=== PATIENT | male | born 1945 | race Caucasian/White ===

== ENCOUNTER 2024-04-13 11:02 | Inpatient (IN) ==
[2024-04-13 11:39] LABS: ABS Lymphocytes 0.9 10^3/uL (1.0-4.8); ABS Monocytes 0.5 10^3/uL (0.0-1.1); ABS Nucleated RBC 0.01 10^3/ul; Eosinophil % 0.1 %; Hemoglobin 13.3 g/dL (13.2-16.3); Lymphocyte % 11.9 %; Mean Corpuscular Hemoglobin 29.9 pg (27-33); Mean Corpuscular Hgb Conc 33.2 g/dL (31-36); Mean Platelet Volume 8.1 fL (7.5-11.2); Nucleated Red Blood Cells % 0.1 %/100WBC (0.0-0.8); Platelet Count 141 10^3/uL (150-450); Red Blood Count 4.45 10^6/uL (4.06-5.63); Red Cell Distribution Width 14.8 % (12-17); White Blood Count 7.4 10^3/uL (3.6-10.2)
[2024-04-13 11:44] LABS: INR 1.09 (0.85-1.14)
[2024-04-13] MEDS: Cefepime 2 GM in Dextrose 2 GM/50 ML BAG IV ONE (11:47)
[2024-04-13 12:31] LABS: Albumin/Globulin Ratio 1.5 (1-3); C Reactive Protein 44.79 mg/L (<8.01); Calcium 8.4 mg/dL (8.6-10.3); Creatinine, Serum 2.95 mg/dL (0.67-1.17); Globulin 2.7 g/dL (2-4); Magnesium 1.6 mg/dL (1.9-2.7); Potassium 3.2 mmol/L (3.5-5.0); Total Bilirubin 0.7 mg/dL (0.2-1.0); Total Protein 6.7 g/dL (6.4-8.9); eGFR CKD-EPI 21.2 (>60)
[2024-04-13 13:18] LABS: Urine Appearance Turbid; Urine Bilirubin Negative (Negative); Urine Blood 1+ (Negative); Urine Color Light-Yellow; Urine Glucose Negative (Negative); Urine Ketones Negative (Negative); Urine Nitrite Negative (Negative); Urine Protein 2+ (>=100 mg/dL) (Negative); Urine Specific Gravity 1.013 (1.002-1.030); Urine Urobilinogen Negative (Negative); Urine pH 7.5 (5.0-8.0)
[2024-04-13] MEDS: Magnesium Sulfate 2 gm BAG 2 GM/50 ML BAG IVPB ONE (13:25)
[2024-04-13 13:29] LABS: Urine Bacteria 2+ /HPF (Absent); Urine Red Blood Cell 3+(>10/hpf) /HPF (0-Trace); Urine White Blood Cell 3+(>20/hpf) /HPF (0-Trace)
[2024-04-13 13:42] LABS: High Sensitivity Troponin 1 Hr 38 pg/mL (<20)
[2024-04-13] MEDS: Lactated Ringers 1000 ml BAG 1,000 ML IV ONE (14:36)
[2024-04-13] MEDS: Polyethylene Glycol 3350 17 GM PACKET PO SCH (20:52)
[2024-04-13] MEDS: Senna TAB 8.6 mg TAB PO SCH (20:53)
[2024-04-13] MEDS: ABIRATERONE 250 MG PO SCH (21:00)
[2024-04-13] MEDS: Lactated Ringers 1000 ml BAG 1,000 ML IV SCH (21:31)
[2024-04-13] MEDS: Insulin GLARGINE 100 un/ml 10 ml VIAL SUBCUT SCH (21:41)
[2024-04-13] MEDS: Enoxaparin 30 MG/0.3 ML SYR SUBCUT SCH (23:24)
[2024-04-13] MEDS: NS 0.9% 1000 ml BAG 1,000 ML IV SCH (23:56)
[2024-04-13] MEDS: KCL 20 MEQ/100 ML IVPREMIX 20 MEQ/100 ML BAG IV ONE (23:57)
[2024-04-14 06:09] LABS: Hematocrit 40.9 % (38-53); Mean Corpuscular Hemoglobin 30.8 pg (27-33); Mean Corpuscular Hgb Conc 34.3 g/dL (31-36); Mean Corpuscular Volume 89.7 fL (80-97); Red Blood Count 4.56 10^6/uL (4.06-5.63); Red Cell Distribution Width 14.9 % (12-17); White Blood Count 8.1 10^3/uL (3.6-10.2)
[2024-04-14 06:41] LABS: ABS Lymphocytes 1.1 10^3/uL (1.0-4.8); ABS Monocytes 0.3 10^3/uL (0.0-1.1); ABS Neutrophils 6.7 10^3/uL (1.5-7.6); ABS Nucleated RBC 0.01 10^3/ul; Mean Platelet Volume 8.8 fL (7.5-11.2); Nucleated Red Blood Cells % 0.2 %/100WBC (0.0-0.8); Platelet Count 93 10^3/uL (150-450)
[2024-04-14 07:27] LABS: Calcium 8.7 mg/dL (8.6-10.3); Creatinine, Serum 2.79 mg/dL (0.67-1.17); eGFR CKD-EPI 22.6 (>60)
[2024-04-14 07:41] LABS: Potassium 3.4 mmol/L (3.5-5.0)
[2024-04-14] MEDS: cefTRIAXone 1 gm/50 mL D5W 1 GM/50 ML BAG IV SCH (10:25)
[2024-04-14] MEDS: CMC:Venlafaxine 25 mg TAB (NF) PO SCH (10:36)
[2024-04-15 06:53] LABS: Calcium 8.2 mg/dL (8.6-10.3); Creatinine, Serum 2.83 mg/dL (0.67-1.17); Potassium 3.2 mmol/L (3.5-5.0); eGFR CKD-EPI 22.2 (>60)
[2024-04-15 07:29] LABS: Hematocrit 35.2 % (38-53); Hemoglobin 12.2 g/dL (13.2-16.3); Mean Corpuscular Hemoglobin 30.5 pg (27-33); Mean Corpuscular Hgb Conc 34.8 g/dL (31-36); Mean Corpuscular Volume 87.6 fL (80-97); Mean Platelet Volume 9.7 fL (7.5-11.2); Platelet Count 55 10^3/uL (150-450); Red Blood Count 4.02 10^6/uL (4.06-5.63); Red Cell Distribution Width 14.8 % (12-17); White Blood Count 4.3 10^3/uL (3.6-10.2)
[2024-04-15] MEDS: Lactated Ringers 1000 ml BAG 1,000 ML IV ONE (09:44)
[2024-04-15] MEDS: Cefepime 1 GM in Dextrose 1 GM/50 ML BAG IV SCH (10:37)
[2024-04-15] MEDS: Potassium Chloride LIQUID 20 MEQ/15 ML LIQUID PO ONE (10:54)
[2024-04-15] MEDS: Lactated Ringers 1000 ml BAG 1,000 ML IV SCH (11:01)
[2024-04-15] MEDS ORDERED: Dextrose 50% Syringe 50 ml 25 GM/50 ML SYRINGE IV PUSH PRN (12:38)
[2024-04-15] MEDS ORDERED: Insulin GLARGINE 100 un/ml 10 ml VIAL SUBCUT SCH (21:00)
[2024-04-16 08:03] LABS: Creatinine, Serum 2.95 mg/dL (0.67-1.17); Potassium 3.1 mmol/L (3.5-5.0); eGFR CKD-EPI 21.2 (>60)
[2024-04-16 08:47] LABS: Hematocrit 30.7 % (38-53); Hemoglobin 10.8 g/dL (13.2-16.3); Mean Corpuscular Hemoglobin 30.8 pg (27-33); Mean Corpuscular Hgb Conc 35.3 g/dL (31-36); Mean Corpuscular Volume 87.3 fL (80-97); Mean Platelet Volume 10.9 fL (7.5-11.2); Platelet Count 42 10^3/uL (150-450); Red Blood Count 3.51 10^6/uL (4.06-5.63); Red Cell Distribution Width 14.6 % (12-17); White Blood Count 3.7 10^3/uL (3.6-10.2)
[2024-04-16] MEDS: Calcium Carb (TUMS) 500 mg CHEW TAB PO ONE (10:42)
[2024-04-16] MEDS: cefTRIAXone 1 gm/50 mL D5W 1 GM/50 ML BAG IV SCH (11:58)
[2024-04-16] MEDS: Potassium Chloride LIQUID 20 MEQ/15 ML LIQUID PO ONE (12:07)
[2024-04-16 21:21] LABS: Anaplasma phagocytophilum Positive (Negative); B. miyamotoi PCR, B Negative (Negative); Babesia divergens/MO-1 Negative (Negative); Babesia ducani Negative (Negative); Ehrlichia chaffeensis Negative (Negative); Ehrlichia ewingii/canis Negative (Negative); Ehrlichia muris eauclairensis Negative (Negative)
[2024-04-17 06:31] LABS: INR 0.96 (0.85-1.14)
[2024-04-17 06:43] LABS: Hematocrit 30.9 % (38-53); Hemoglobin 10.9 g/dL (13.2-16.3); Mean Corpuscular Hemoglobin 30.7 pg (27-33); Mean Corpuscular Hgb Conc 35.4 g/dL (31-36); Mean Corpuscular Volume 86.7 fL (80-97); Mean Platelet Volume 10.9 fL (7.5-11.2); Platelet Count 51 10^3/uL (150-450); Red Blood Count 3.57 10^6/uL (4.06-5.63); Red Cell Distribution Width 14.5 % (12-17)
[2024-04-17 07:01] LABS: Calcium 8.1 mg/dL (8.6-10.3); Creatinine, Serum 2.9 mg/dL (0.67-1.17); Potassium 3.1 mmol/L (3.5-5.0); eGFR CKD-EPI 21.6 (>60)
[2024-04-17] MEDS: fentaNYL 100 mcg/2 ml 50 MCG/ML VIAL ONE (09:55)
[2024-04-17] MEDS: NS 0.9% 1000 ml BAG 1,000 ML IV SCH (17:05)
[2024-04-18 06:39] LABS: ABS Eosinophils 0.1 10^3/uL (0.0-0.5); ABS Lymphocytes 2.1 10^3/uL (1.0-4.8); ABS Monocytes 0.5 10^3/uL (0.0-1.1); ABS Neutrophils 2.7 10^3/uL (1.5-7.6); Eosinophil % 1.2 %; Hematocrit 30.7 % (38-53); Hemoglobin 10.8 g/dL (13.2-16.3); Lymphocyte % 38.8 %; Mean Corpuscular Hemoglobin 30.6 pg (27-33); Mean Corpuscular Hgb Conc 35.2 g/dL (31-36); Mean Corpuscular Volume 86.9 fL (80-97); Mean Platelet Volume 10.5 fL (7.5-11.2); Nucleated Red Blood Cells % 0.1 %/100WBC (0.0-0.8); Platelet Count 69 10^3/uL (150-450); Red Blood Count 3.53 10^6/uL (4.06-5.63); Red Cell Distribution Width 14.6 % (12-17); White Blood Count 5.5 10^3/uL (3.6-10.2)
[2024-04-18 06:42] LABS: Calcium 8.1 mg/dL (8.6-10.3); Creatinine, Serum 2.96 mg/dL (0.67-1.17); Potassium 3.3 mmol/L (3.5-5.0); eGFR CKD-EPI 21.1 (>60)
[2024-04-18 14:06] VITALS: BP 125/71
== END 2024-04-18 17:05 | disposition home or self-care (01) | DRG 871 ==
LOC: ED 11:02 → EDHOLD 11:02 → SUATTDRO 16:10 → MED 18:20
PROVIDERS: ADMIT Student in an Organized Health Care Education/Training Program; ATTEND Internal Medicine